=== PATIENT | female | born 1965 | race Caucasian/White ===

== ENCOUNTER → 2017-12-25 09:34 | Outpatient (BNVA) | payer MEDICARE, SELFPAY | PROVIDERS: PCP Family Medicine; Visit Provider Orthopaedic Surgery | DX: T84.84XD Pain due to internal orthopedic prosthetic devices, implants and grafts, subsequent encounter (principal); T84.12 Displacement of internal fixation device of bones of limb; S42.292G Other displaced fracture of upper end of left humerus, subsequent encounter for fracture with delayed healing; W00.0XXD Fall on same level due to ice and snow, subsequent encounter | CPT/HCPCS: 99212 ==

== ENCOUNTER 2018-01-17 11:33 | Outpatient (CLI) | payer MEDICARE, MEDICAID, SELFPAY ==
--- NOTE | 2018-01-17 11:29 | DI.RAD_ITS ---
SYMPTOMS/DIAGNOSIS: PAIN LEFT SHOULDER: Two views. Comparison 10/24/17. There are again seen plate and screws transfixing the comminuted fracture of the proximal left humerus. There has been no change in the orthopedic hardware or fracture components since the prior examination. No new fractures or dislocations are present.
== END 2018-01-17 11:53 ==
PROVIDERS: PCP Family Medicine; Referring Provider Family Medicine; Visit Provider Orthopaedic Surgery
DX: M25.512 Pain in left shoulder (principal); S42.292D Other displaced fracture of upper end of left humerus, subsequent encounter for fracture with routine healing; X58.XXXD Exposure to other specified factors, subsequent encounter
CPT/HCPCS: 20610; 99213; 73030; J1040

== ENCOUNTER 2018-01-29 09:46 | Outpatient (CLI) | payer MEDICARE, MEDICAID, SELFPAY ==
--- NOTE | 2018-01-29 10:05 | W.PREOPHP ---
Assessment and Plan (1) Proximal humeral fracture: Current visit: Yes Status: Acute Plan: Discussed surgery including surgical technique, recovery, benefits and risks including but not limited to infection, damage to soft tissue/nerves/blood vessels and risk of blood clots with patient in detail. After discussion of risks, patient elects to continue with scheduling surgery. Patient had opportunity to have questions answered to her satisfaction. She will be given a work note to be out of starting day of surgery. Patient will contact office if issues arise, will continue to be scheduled for removal of distal screw of the left proximal humerus ORIF with Dr. Mejia on February 04, 2018. History of Present Illness Narrative: Ms. Cerda is a 53-year-old female who presents to clinic for her preoperative visit for scheduled distal screw removal from her left humerus with Dr. Mejia on February 04, 2018. Patient had initial injury of the proximal left humeral fracture on May 18, 2016 when she slipped on the ice. Patient reports she went to the ER at that time she had x-rays done and was given a sling. When patient attended orthopedic follow-up her fracture was determined to be more severe as per CT scan. Patient was diagnosed with a 4-part valgus impacted fracture of the proximal humerus which was treated with ORIF and Norian cement on June 02, 2016. Patient continued to have slow progress with recovery and on March 05, 2017 was brought back to the operating room for exchange of loose locking screw from proximal humerus, tightening of the previously loose screw and injection of Norian bone graft substitute into the nonunion gap of the fracture. Following that surgery patient continued to progress well on her range of motion and strengthening. However, 2 days following her appointment on December 25, 2017 patient began to develop pain and popping/snapping sensation with range of motion of her left shoulder. Patient was given subacromial injection via posterior approach by Dr. Mejia on January 17, 2018 which she states provided partial pain relief for 3 days. Since that time patient has continued to have pain located in the anterior aspect of her shoulder radiating down to the middle of her upper arm. She denies pain at rest, states only experiences pain with range of motion. Patient takes Tylenol 1000 mg every 6 hours which helps to alleviate pain. Denies the use of ice or heat application. Patient denies any numbness or tingling. She denies any muscle strength changes. As per Dr. Mejia's note on January 17, 2018 -x-ray of left shoulder, AP and lateral were carefully compared to previous x-rays and it was determined the most distal screw in the humeral head may have a little bit more protrusion compared to previous films. No screws are broken.There is no evidence in change of alignment of the humeral head from fracture fragment. Pertinent Surgical Information Patient has pertinent past medical history of fibromyalgia, depression, chronic fatigue syndrome, obstructive sleep apnea, GERD with esophagitis, hyperlipidemia - which she is not on medication for Patient's chart had noted history of chest pain. Discussed chest pain history with patient in detail, she reports having an episode of diffuse anterior chest wall pain due to fibromyalgia. She denies any heart related chest pain. She denies any recent episodes of chest wall pain. She has history of GERD which is well controlled on current medications. Reports last ulcer was several years ago. Patient reports wearing CPAP machine at most 3 nights weekly for her obstructive sleep apnea. Reports wears infrequently because she does not feel any difference while wearing the mask and has increased difficulty sleeping with the mask on. Denies past medical history of: Hypertension, stroke, cardiac issues, angina, asthma, COPD, renal issues, liver issues, hepatitis, hyperlipidemia, bleeding disorders, seizures, anxiety, diabetes, autoimmune disorders, thyroid issues Denies prior complications from surgery or anesthesia. Review of Systems Constitutional Denies fever(s) and Denies headache(s) Eyes Denies change in vision ENT Denies headache(s) Cardiovascular Denies chest pain, Denies rapid heart rate, Denies irregular heart rhythm, Denies dyspnea, Denies dyspnea on exertion and Denies slow heart rate Respiratory Denies change in phlegm color, Reports cough (Chronic smoker's cough), Denies excessive phlegm production (Denies change in phlegm production), Denies dyspnea, Denies dyspnea on exertion and Reports wheezing (At rest and with activity, reports wheezing only occurs before she has to cough) Gastrointestinal Denies abdominal pain, Denies melena, Denies hematochezia, Denies constipation, Denies diarrhea, Denies nausea and Denies vomiting Genitourinary Denies hematuria, Denies dysuria and Reports urinary urgency Comments: Denies burning sensation with urination Musculoskeletal Reports as per HPI, Denies joint swelling, Reports limited range of motion (Due to left shoulder pain), Reports muscle cramps (Chronic due to fibromyalgia), Denies numbness and Denies tingling Neurologic Denies headache(s), Denies numbness and Denies tingling Psychiatric Denies anxiety and Reports depression Allergic/Immunologic Reports wheezing (At rest and with activity, reports wheezing only occurs before she has to cough) [facility] Family History Mother Diabetes Heart disease Father Diabetes Essential hypertension Sister Neoplasm Brother Essential hypertension Hyperlipidemia Brother Smoker Myocardial infarct Grandfather Cerebrovascular accident Grandfather Diabetes Heart disease Neoplasm Grandmother Heart disease Cerebrovascular accident Grandmother Diabetes Neoplasm Daughter No problems noted. Brother Neoplasm Medical History Vaginal high risk human papillomavirus (HPV) DNA test positive (Acute 11/25/12) Urticaria (Acute) Smoker (Acute) Rotator cuff syndrome (Acute) Primary fibromyalgia syndrome (Acute) Peptic reflux disease (Acute 03/15/06) Papanicolaou smear of cervix with low grade squamous intraepithelial lesion (LGSIL) (Acute 05/26/13) Pap smear vag w ASC-US (Acute 11/25/12) Lipoma (Acute 09/13/08) Hyperlipidemia (Acute 11/25/12) Pyloric ulcer associated with Helicobacter pylori (Acute) Gastroesophageal reflux disease with esophagitis (Acute) Disorder characterized by back pain (Acute) Depressive disorder (Acute) Chronic fatigue syndrome (Acute) Cervical intraepithelial neoplasia grade 1 (Acute) Abnormal findings on diagnostic imaging of skull and head, not elsewhere classified (Acute 03/15/03) ASCUS with positive high risk HPV (Acute 09/01/16) Insomnia (Chronic) Apnea, sleep (Chronic) History of gastroesophageal reflux (GERD) (Chronic) Tobacco use (Chronic) Osteoarthritis of left hip (Acute) Anemia Chronic fatigue Depression Fibromyalgia Hyperlipidemia Reflux esophagitis Rotator cuff syndrome Sleep apnea Social History household members: significant other marital status: current occupational status: employed current occupation: [employer] pets and animals: Yes pets and animals: cat(s) Smoking/Tobacco Use Status: Current every day tobacco type: cigarettes passive smoking exposure: No alcohol intake: current alcohol intake frequency: holidays/special occasions only substance use type: marijuana special juan needs: No seatbelt use: always Surgical History History of Surgical Procedure (Chronic) Dental root implant present (Acute) History of fracture of humerus (Acute) C5-C6 SPINAL SURGERY Cervical Procedure Ligation of fallopian tube Total replacement of hip Meds Home Medications Medication Instructions Recorded Confirmed Type zinc 50 mg PO DAILY #90 09/12/12 01/17/18 History ibuprofen 800 mg PO TID #90 tab-cap 06/28/16 01/17/18 History cholecalciferol (vitamin D3) 1,000 unit PO DAILY #90 tab-cap 12/12/16 01/17/18 History omeprazole 40 mg PO DAILY #90 tab-cap 12/12/16 01/17/18 History tramadol 50 mg PO QID PRN #20 tab 12/12/16 01/17/18 History celecoxib [Celebrex] 200 mg PO BID #20 cap 03/05/17 01/17/18 Rx Proventil Hfa 1 - 2 puff INHALATION Q4H PRN #1 04/11/17 01/17/18 Clinic inhaler pregabalin [Lyrica] 200 mg PO TID #90 tab-cap 08/24/17 01/17/18 Rx syringe with cannula,disposabl [BD #3 syringe 09/11/17 01/17/18 Rx Blunt Plastic Cannula] cyanocobalamin (vitamin B-12) 1,000 mcg IM Monthly #3 vial 09/28/17 01/17/18 Rx Bupropion HCl 100 mg PO BID #180 tab-cap 11/29/17 01/17/18 Clinic duloxetine 60 mg capsule,delayed 60 mg PO DAILY #90 cap 12/20/17 01/17/18 Rx release Depo-Medrol 80 mg/mL suspension 80 mg IU ONCE #1 ml NS 01/17/18 Clinic for injection Allergies Allergy/AdvReac Type Severity Reaction Status Date / Time amoxicillin Allergy Intermediate rash Unverified 01/29/18 11:18 clavulanic acid AdvReac Intermediate rash Verified 01/29/18 11:18 [From Augmentin] morphine AdvReac Intermediate vomiting/ Unverified 01/29/18 11:18 nausea Exam Const General: cooperative and no acute distress [facility] Head: normal to inspection, normocephalic and atraumatic Ears: external ears normal General nose exam: external nose normal and no nasal discharge Face and sinus: face symmetric Mouth: oral mucosae normal, lip normal, tongue normal and moist mucous membranes Teeth and gingiva: dentures Throat: posterior oropharynx normal Eyes General: appearance normal, both eyes and all related structures Pupils: PERRL EOM: EOM intact bilaterally Neck Neck: trachea midline Carotids: normal carotid upstroke Lymphatic: no lymphadenopathy noted Resp Effort & Inspection: normal respiratory effort and able to speak in complete sentences Auscultation: clear to auscultation bilaterally, no rales, no rhonchi and no wheezes Cardio Heart Sounds: S1 normal, S2 normal, no murmurs, no rubs and no other Pulses: radial pulses present bilaterally GI Palpation: soft, no hepatosplenomegaly and nontender Auscultation: normal bowel sounds Skin General skin exam: no rashes or lesions noted Extrem Other: Left shoulder examination: Well-healed incision, skin is intact without areas of erythema, edema or lesions. No tenderness to palpation along incision, shoulder joint or clavicle. Active range of motion yields forward flexion to 90 degrees, abduction of 35 degrees, external rotation with elbow adducted at side of 20 degrees and on internal rotation patient can reach lateral aspect of left hip. Patient experiences diffuse shoulder and upper arm pain at end of range of motion in forward flexion and abduction. Passive range of motion unable to move greater than 10 degrees further from patient's active range of motion due to patient guarding and pain. Muscle strength of left arm was 4+ out of 5, pain was worse with resisted external rotation and internal rotation. Patient has grimace with all resisted range of motion. Sensation to light touch was intact. Capillary refill is intact. Radial pulses 2+. Right shoulder examination: Active range of motion yields forward flexion, 170 degrees, abduction 160 degrees, external rotation with elbow adducted at side of 70 degrees and internal rotation patient can reach inferior aspect of her scapula without difficulty. No pain is elicited with range of motion. Muscle strength is 5 out of 5.
== END 2018-01-29 10:06 ==
PROVIDERS: PCP Family Medicine; Visit Provider Orthopaedic Surgery
DX: T84.84XD Pain due to internal orthopedic prosthetic devices, implants and grafts, subsequent encounter (principal); T84.12 Displacement of internal fixation device of bones of limb; Z01.818 Encounter for other preprocedural examination
CPT/HCPCS: NC

== ENCOUNTER 2018-02-04 09:06 | Day surgery (SDC) | payer MEDICARE, MEDICAID, SELFPAY ==
[2018-02-04 10:03] VITALS: BP 119/73; PULSE 84; RESP 18; TEMP 37; O2SAT 99
[2018-02-04] MEDS: Lactated Ringers 1,000 ML 80 ML IV ×2 (10:38→13:50)
--- NOTE | 2018-02-04 14:22 | DI.RAD_ITS ---
SYMPTOM/DIAGNOSIS: HARDWARE BODY REMOVAL C-ARM LEFT HUMERUS: Fluoroscopy Time: 12.8 seconds .91mGy Fluoroscopy was provided in the OR for Dr. Mejia. A single hard copy image shows a fixation plate in the proximal humerus. Please see procedure note for details.
--- NOTE | 2018-02-04 15:05 | W.PM.DSUDISC ---
Discharge Plan Disposition Patient Disposition: HOME Condition: Good Discharge Details Attending Provider: Rajat Mejia Primary Care Provider: Fortino Webb Home Meds and New Rx's Prescriptions: New oxycodone-acetaminophen 5-325 mg tablet 1 tab PO Q6H PRN (Reason: pain) Qty: 20 RF: 0 Continue methylprednisolone acetate [Depo-Medrol] 80 mg/mL suspension 80 mg IU ONCE Qty: 1 RF: 0 zinc 50 MG tablet 50 mg PO DAILY Qty: 90 RF: 4 ibuprofen 800 MG tablet 800 mg PO TID PRNQty: 90 RF: 3 omeprazole 40 MG capsule,delayed release(DR/EC) 40 mg PO DAILY Qty: 90 RF: 4 cholecalciferol (vitamin D3) 1,000 UNIT capsule 1,000 unit PO DAILY Qty: 90 RF: 4 tramadol 50 MG tablet 50 mg PO QID PRN Qty: 20 RF: 0 PROVENTIL HFA 18 GM HFA.AER.AD 1 - 2 puff Inhalation Q4H PRN Qty: 1 RF: 4 pregabalin [Lyrica] 200 MG capsule 200 mg PO TID Qty: 90 RF: 3 syringe with cannula,disposabl [BD Blunt Plastic Cannula] 1 EACH syringe 1 ea Miscellaneous DIRECTED Qty: 3 RF: 4 cyanocobalamin (vitamin B-12) 1,000 MCG/1 ML solution 1,000 mcg IM Monthly Qty: 3 RF: 0 Bupropion HCl 100 MG tablet 100 mg PO BID Qty: 180 RF: 4 duloxetine 60 mg capsule,delayed release(DR/EC) 60 mg PO DAILY Qty: 90 RF: 4 celecoxib [Celebrex] 200 MG capsule 200 mg PO BID Qty: 20 RF: 0 Discharge Instructions Additional Instructions: Sling L arm for comfort. May take L arm out of sling as often and for as long as your discomfort allows. May move L arm as much as your pain allows. As pain decreases, move it more. Discontinue sling when your pain is minimal. Apply ice to front of shoulder every 4 hours for 1 hour each time until pain subsides. May remove dressings, shower, and get incision wet on morning. After showering, cover incision with light gauze dressing. May leave incision uncovered when it is dry and sealed. Take oxycodone for breakthru pain not relieved by ibuprofen. Follow up in 's office in 2 weeks. Stand Alone Forms: DSU Post op Instructions, Ambrocio Taylor ([facility]) Referrals: Rajat Mejia MD [ [facility] STAFF PHYSICIAN] - (f/u in 2 weeks.) Equipment/Supplies: Sling Activity:: Activity as Tolerated Remove Dressings/Wound Care:: 48 hours Shower/Bathe:: 48 hours Diet:: As Tolerated Discharge Orders Discharge Orders: Discharge Order (Routine); Ordered 02/04/18 Ordered By: Rajat Mejia DS: Diagnosis Discharge Diagnosis (1) Painful orthopaedic hardware: Status: Acute
[2018-02-04 15:25] VITALS: BP 123/83; PULSE 83; RESP 12; TEMP 36.4; O2SAT 96
[2018-02-04 15:30] VITALS: BP 132/54; PULSE 85; RESP 11; TEMP 36.4; O2SAT 94
[2018-02-04 15:35] VITALS: BP 134/63; PULSE 83; RESP 11; TEMP 36.4; O2SAT 96
[2018-02-04] MEDS: oxyCODONE-CR 10 MG TABCR PO (15:46)
[2018-02-04 15:50] VITALS: BP 135/75; PULSE 76; RESP 14; TEMP 36.5; O2SAT 95
[2018-02-04 16:20] VITALS: BP 109/63; PULSE 86; RESP 15; TEMP 36.2; O2SAT 96
--- NOTE | 2018-02-06 07:18 | ROE_ITS ---
REPORT OF OPERATIVE PROCEDURE DATE OF PROCEDURE February 04, 2018 PREOPERATIVE DIAGNOSIS Complications of orthopedic hardware (screw penetration into left shoulder joint). POSTOPERATIVE DIAGNOSIS Complications of orthopedic hardware (screw penetration into left shoulder joint). PROCEDURE Removal of two screws from the left proximal humerus that may have penetrated into the joint. ANESTHESIA General. SURGEON Rajat Mejia M.D. COPYING MACHINE REPAIRER CAMI Spencer INDICATIONS This is a 53-year-old white female who had previously undergone an ORIF of a comminuted 4-part fractu re of the left proximal humerus. The fracture had a delayed union that was subsequently treated with bone graft and replacing of some screws. She had been doing fairly well until about a month ago when she started having increased pain in her left shoulder. This did not respond to an injection. X-rays had confirmed that there had been a screw penetration from the most distal screw in the humeral head. This had been present for months, but had not become symptomatic until about a month ago. I recommen ded removal of the screws from the inferior portion of the humeral head, which may have penetrated in to the joint to relieve her pain. The risks and complications of the procedure were explained to the patient in detail preoperatively. PROCEDURE DESCRIPTION The patient was taken in the operating room on 02/04/2018. She was placed supine on the operating ro om table. A general anesthetic was administered. She was then placed in the johnson chair position. T he left shoulder was prepped and draped in free and usual sterile fashion. I used her old deltopecto ral scar for the approach. The incision was carried down to the subcu. The deltopectoral interval was somewhat obscured by prior scarring, but I was able to get down to the plate and the proximal humeru s. I used the periosteal elevators to expose the plate. Osteotomes were used to remove bone that had overgrown some of the screws. With the help of the C-arm image intensification imaging, I was able to localize the most distal screws in the humeral head. I had difficulty deciding which of the two scre ws had penetrated, so I removed them both since they were not necessary for the fixation construct. I then irrigated the wound with Betadine and saline solution. Hemostasis was obtained with electrocaut doroteo. The wound margins were then infiltrated with 0.5% Marcaine with epinephrine solution. The deltop ectoral interval was loosely closed with interrupted #3-0 Vicryl sutures. The subcu was approximated with interrupted #3-0 Vicryl sutures and the skin edges were interrupted #4-0 Nylon sutures. The woun d was dressed with Xeroform gauze, sterile gauze 4x4s, ABD pad, and wrapped with a Kerlix bandage. He r left arm was placed in a simple sling. The patient's anesthesia was reversed without complications. She was discharged to the Recovery Room in good condition. The blood loss was minimal. The patient was discharged home from the Day Surgery Unit when fully recovered from her general anest hesia. She was given instructions to use her sling for comfort. She may remove her left arm from the sling as often and for as long as discomfort allows. She may discontinue the sling when she is movin g her left arm with minimal discomfort. She should increase the use of her left arm gradually as her discomfort allows. She may remove her dressings, shower and get her incisions wet in 72 hours. She ca n leave the incision uncovered when it is dry and sealed. She will followup in Dr. Mejia's office in two weeks. She is given a prescription for inflammation of Celebrex 200 mg p.o. b.i.d. and a prescri ption for pain of Percocet 5/325 1 tablet every six hours as needed.
== END 2018-02-04 16:35 | disposition home or self-care (01) ==
PROVIDERS: PCP Family Medicine; Visit Provider Orthopaedic Surgery
PROC: (CPT 20680; principal; 2018-02-04 10:30)
DX: T84.84XA Pain due to internal orthopedic prosthetic devices, implants and grafts, initial encounter (principal); M25.512 Pain in left shoulder; Y83.8 Other surgical procedures as the cause of abnormal reaction of the patient, or of later complication, without mention of misadventure at the time of the procedure
CPT/HCPCS: 20680; 73060; J0131; J0690; J1100; J1885; J2405; J3010; L3650

== ENCOUNTER → 2018-02-19 10:08 | Outpatient (BNVA) | payer MEDICARE, MEDICAID, SELFPAY | PROVIDERS: PCP Family Medicine; Referring Provider Family Medicine; Visit Provider Orthopaedic Surgery | DX: Z47.89 Encounter for other orthopedic aftercare (principal); T84.84XD Pain due to internal orthopedic prosthetic devices, implants and grafts, subsequent encounter ==

== ENCOUNTER → 2018-04-02 09:48 | Outpatient (BNVA) | payer MEDICARE, MEDICAID, SELFPAY | PROVIDERS: PCP Family Medicine; Referring Provider Family Medicine; Visit Provider Orthopaedic Surgery | DX: Z47.89 Encounter for other orthopedic aftercare (principal); T84.84XD Pain due to internal orthopedic prosthetic devices, implants and grafts, subsequent encounter ==